=== PATIENT | female | born 1980 | race Caucasian/White ===

== ENCOUNTER → 2019-09-18 08:22 | Outpatient (BNVA) | payer MEDICARE, MEDICAID, SELFPAY | PROVIDERS: Family Provider Family Medicine; PCP Nurse Practitioner; Visit Provider Psychiatry & Neurology Psychiatry | DX: F31.60 Bipolar disorder, current episode mixed, unspecified (principal); F63.81 Intermittent explosive disorder | CPT/HCPCS: 80048; 80178 ==

== ENCOUNTER → 2019-09-25 08:19 | Outpatient (BNVA) | payer MEDICARE, MEDICAID, SELFPAY | PROVIDERS: Family Provider Family Medicine; PCP Nurse Practitioner; Visit Provider Nurse Practitioner | DX: E03.8 Other specified hypothyroidism (principal) | CPT/HCPCS: 84439; 84443; 84481; 86800 ==

== ENCOUNTER → 2019-09-26 08:08 | Outpatient (BNVA) | payer MEDICARE, MEDICAID, SELFPAY | PROVIDERS: Family Provider Family Medicine; PCP Nurse Practitioner; Visit Provider Nurse Practitioner | DX: E03.8 Other specified hypothyroidism (principal) | CPT/HCPCS: 81003 ==

== ENCOUNTER 2019-10-11 08:22 | Outpatient (CLI) | payer MEDICARE, MEDICAID, SELFPAY ==
--- NOTE | 2019-10-11 08:45 | US_ITS ---
WS: [id number] THYROID ULTRASOUND REASON FOR EXAM: enlarge thyroid TECHNIQUE: Grayscale and Doppler ultrasound examination of the thyroid gland. FINDINGS: RIGHT: Right thyroid gland measures 4.5 cm x 1.9 cm x 1.5 cm. Right thyroid volume equals 6.4 ccm3. Heteroge neous. LEFT: Left thyroid gland measures 3.6 cm x 1.5 cm x 2.1 cm. Left thyroid volume equals 6.0 ccm3. Heterogene ous. An area in the mid lobe shows increased blood flow. The heterogeneous configuration suggests Carlie's disease. Versus hypothyroidism. There is a encapsulated lesion in the midportion of the left lobe measures 4.2 x 3.0 mm. This appears to be in adenoma. Thyroid isthmus: 0.2 mm. US/US thyroid [id number] IMPRESSION: Heterogeneous configuration suggests Carlie's disease versus hypothyroidism. Small adenoma midportion left lobe.
== END 2019-10-11 08:23 | disposition home or self-care (01) ==
LOC: RAD 08:26
PROVIDERS: Family Provider Family Medicine; PCP Nurse Practitioner; Visit Provider Nurse Practitioner
DX: E04.9 Nontoxic goiter, unspecified (principal); D34 Benign neoplasm of thyroid gland
CPT/HCPCS: 76536

== ENCOUNTER → 2019-10-15 08:51 | Outpatient (BNVA) | payer MEDICARE, MEDICAID, SELFPAY | PROVIDERS: Family Provider Family Medicine; PCP Nurse Practitioner; Visit Provider Psychiatry & Neurology Psychiatry | DX: Z79.899 Other long term (current) drug therapy (principal) | CPT/HCPCS: 80178 ==

== ENCOUNTER → 2019-12-04 10:22 | Outpatient (BNVA) | payer MEDICARE, MEDICAID, SELFPAY | PROVIDERS: Family Provider Family Medicine; PCP Nurse Practitioner; Visit Provider Nurse Practitioner | DX: E03.8 Other specified hypothyroidism (principal) | CPT/HCPCS: 84443 ==

== ENCOUNTER → 2020-01-08 08:20 | Outpatient (BNVA) | payer MEDICARE, MEDICAID, SELFPAY | PROVIDERS: Family Provider Family Medicine; PCP Nurse Practitioner; Visit Provider Nurse Practitioner | DX: Z11.1 Encounter for screening for respiratory tuberculosis (principal) | CPT/HCPCS: 86580 ==

== ENCOUNTER → 2020-02-25 08:00 | Outpatient (BNVA) | payer MEDICARE, MEDICAID, SELFPAY | PROVIDERS: Family Provider Family Medicine; PCP Nurse Practitioner; Visit Provider Psychiatry & Neurology Psychiatry | DX: E03.8 Other specified hypothyroidism (principal); F84.0 Autistic disorder; F90.9 Attention-deficit hyperactivity disorder, unspecified type; Z79.899 Other long term (current) drug therapy | CPT/HCPCS: 80053; 80156; 80178; 81000; 84443; 85025 ==

== ENCOUNTER → 2020-04-30 08:19 | Outpatient (BNVA) | payer MEDICARE, MEDICAID, SELFPAY | PROVIDERS: Family Provider Family Medicine; PCP Nurse Practitioner; Visit Provider Nurse Practitioner | DX: E03.9 Hypothyroidism, unspecified (principal); E78.2 Mixed hyperlipidemia | CPT/HCPCS: 80061; 84443 ==

== ENCOUNTER → 2020-05-27 10:27 | Outpatient (BNVA) | payer MEDICARE, MEDICAID, SELFPAY | PROVIDERS: Family Provider Family Medicine; PCP Nurse Practitioner; Visit Provider Nurse Practitioner | DX: Z12.4 Encounter for screening for malignant neoplasm of cervix (principal) | CPT/HCPCS: 88175 ==

== ENCOUNTER → 2020-07-13 09:10 | Outpatient (BNVA) | payer MEDICARE, MEDICAID, SELFPAY | PROVIDERS: Family Provider Family Medicine; PCP Nurse Practitioner; Visit Provider Nurse Practitioner | DX: Z11.3 Encounter for screening for infections with a predominantly sexual mode of transmission (principal) | CPT/HCPCS: 81000; 87491; 87591 ==

== ENCOUNTER → 2020-08-27 08:28 | Outpatient (BNVA) | payer MEDICARE, MEDICAID, SELFPAY | PROVIDERS: Family Provider Family Medicine; PCP Nurse Practitioner; Visit Provider Nurse Practitioner | DX: F84.0 Autistic disorder (principal); F90.9 Attention-deficit hyperactivity disorder, unspecified type; Z51.81 Encounter for therapeutic drug level monitoring; Z79.899 Other long term (current) drug therapy; E03.8 Other specified hypothyroidism | CPT/HCPCS: 80053; 80061; 80156; 80178; 84443; 85025 ==

== ENCOUNTER → 2020-11-13 08:04 | Outpatient (BNVA) | payer MEDICARE, MEDICAID, SELFPAY | PROVIDERS: Family Provider Family Medicine; PCP Nurse Practitioner; Visit Provider Nurse Practitioner | DX: E78.2 Mixed hyperlipidemia (principal); E61.1 Iron deficiency; F31.62 Bipolar disorder, current episode mixed, moderate; F90.9 Attention-deficit hyperactivity disorder, unspecified type; F84.0 Autistic disorder; E03.8 Other specified hypothyroidism; F63.81 Intermittent explosive disorder | CPT/HCPCS: 80053; 80061; 80156; 80178; 83540; 84443; 85025 ==

== ENCOUNTER → 2020-12-01 16:02 | Outpatient (BNVA) | payer MEDICARE, MEDICAID, SELFPAY | PROVIDERS: Family Provider Family Medicine; PCP Nurse Practitioner; Visit Provider Nurse Practitioner | DX: K59.04 Chronic idiopathic constipation (principal) | CPT/HCPCS: 74018; 88304; 88305 ==

== ENCOUNTER → 2020-12-07 10:51 | Outpatient (BNVA) | payer MEDICARE, MEDICAID, SELFPAY | PROVIDERS: Family Provider Family Medicine; PCP Nurse Practitioner; Visit Provider Nurse Practitioner | DX: K59.04 Chronic idiopathic constipation (principal); E03.8 Other specified hypothyroidism | CPT/HCPCS: 74018; 80053; 80156; 80178; 84443; 85025 ==

== ENCOUNTER → 2021-01-06 07:52 | Outpatient (BNVA) | payer MEDICARE, MEDICAID, SELFPAY | PROVIDERS: Family Provider Family Medicine; PCP Nurse Practitioner; Visit Provider Family Medicine | DX: Z11.1 Encounter for screening for respiratory tuberculosis (principal) | CPT/HCPCS: 86580 ==

== ENCOUNTER → 2021-03-10 10:20 | Outpatient (BNVA) | payer MEDICARE, MEDICAID, SELFPAY | PROVIDERS: Family Provider Family Medicine; PCP Nurse Practitioner; Visit Provider Nurse Practitioner | DX: E78.2 Mixed hyperlipidemia (principal); N91.2 Amenorrhea, unspecified; E03.8 Other specified hypothyroidism; E61.1 Iron deficiency | CPT/HCPCS: 80053; 80061; 81025; 83540; 84443; 85025 ==

== ENCOUNTER → 2021-05-11 16:33 | Outpatient (BNVA) | payer MEDICARE, MEDICAID, SELFPAY | PROVIDERS: Family Provider Family Medicine; PCP Nurse Practitioner; Visit Provider Nurse Practitioner | DX: E61.1 Iron deficiency (principal) | CPT/HCPCS: 83540 ==

== ENCOUNTER → 2021-07-13 07:35 | Outpatient (BNVA) | payer MEDICARE, MEDICAID, SELFPAY | PROVIDERS: Family Provider Family Medicine; PCP Nurse Practitioner; Visit Provider Nurse Practitioner | DX: E03.8 Other specified hypothyroidism (principal); F84.0 Autistic disorder; F90.9 Attention-deficit hyperactivity disorder, unspecified type; F25.0 Schizoaffective disorder, bipolar type | CPT/HCPCS: 81000 ==

== ENCOUNTER → 2021-10-05 15:55 | Outpatient (BNVA) | payer MEDICARE, MEDICAID, SELFPAY | PROVIDERS: Family Provider Family Medicine; PCP Nurse Practitioner; Visit Provider Nurse Practitioner | DX: F25.9 Schizoaffective disorder, unspecified (principal); E03.8 Other specified hypothyroidism | CPT/HCPCS: 80053; 80156; 84443; 85025 ==

== ENCOUNTER → 2022-01-26 07:36 | Outpatient (BNVA) | payer MEDICARE, MEDICAID, SELFPAY | PROVIDERS: Family Provider Family Medicine; PCP Nurse Practitioner; Visit Provider Nurse Practitioner | DX: E03.8 Other specified hypothyroidism (principal); F31.62 Bipolar disorder, current episode mixed, moderate; F25.9 Schizoaffective disorder, unspecified | CPT/HCPCS: 80156; 84443 ==

== ENCOUNTER → 2022-04-13 07:56 | Outpatient (BNVA) | payer MEDICARE, MEDICAID, SELFPAY | PROVIDERS: Family Provider Family Medicine; PCP Nurse Practitioner; Visit Provider Nurse Practitioner | DX: K59.04 Chronic idiopathic constipation; E03.8 Other specified hypothyroidism; E61.1 Iron deficiency; F90.9 Attention-deficit hyperactivity disorder, unspecified type; K05.10 Chronic gingivitis, plaque induced; J30.89 Other allergic rhinitis; F25.0 Schizoaffective disorder, bipolar type | CPT/HCPCS: 80053; 80156; 84443; 85025 ==

== ENCOUNTER → 2022-06-15 08:07 | Outpatient (BNVA) | payer MEDICARE, MEDICAID, SELFPAY | PROVIDERS: Family Provider Family Medicine; PCP Nurse Practitioner; Visit Provider Nurse Practitioner | DX: N18.2 Chronic kidney disease, stage 2 (mild) (principal) | CPT/HCPCS: 81000 ==

== ENCOUNTER → 2022-07-06 08:22 | Outpatient (BNVA) | payer MEDICARE, MEDICAID, SELFPAY | PROVIDERS: Family Provider Family Medicine; PCP Nurse Practitioner; Visit Provider Nurse Practitioner | DX: N18.2 Chronic kidney disease, stage 2 (mild) (principal); E03.8 Other specified hypothyroidism; E61.1 Iron deficiency | CPT/HCPCS: 80053; 81000; 84443; 85025 ==

== ENCOUNTER → 2022-07-26 08:03 | Outpatient (BNVA) | payer MEDICARE, MEDICAID, SELFPAY | PROVIDERS: Family Provider Family Medicine; PCP Nurse Practitioner; Visit Provider Nurse Practitioner | DX: R73.9 Hyperglycemia, unspecified (principal) | CPT/HCPCS: 83036 ==

== ENCOUNTER 2022-08-17 13:53 | Outpatient (CLI) | payer MEDICARE, MEDICAID, SELFPAY ==
--- NOTE | 2022-08-17 14:21 | MM_ITS ---
WS: [email or web address] BILATERAL 2D . DIGITAL SCREENING MAMMOGRAPHY WITH CAD CLINICAL INFORMATION: Z12.39 - Encounter for other screening for malignant neop... HISTORY: Screening mammogram. No current complaints. COMPARISON: 2017 TECHNIQUE: Bilateral CC and MLO views. FINDINGS: The breasts are composed of heterogeneous fibroglandular density tissue, which can limit the detectio n of small underlying mass lesions. New asymmetric density LEFT breast measuring 6 mm in the upper qu adrant best seen on the MLO view. Recommend LEFT breast diagnostic mammography and ultrasound if pers istent. RIGHT breast is unremarkable. IMPRESSION: MM/[place] [id number] BI-RADS: 0-Incomplete: Need additional imaging evaluation FOLLOW UP: Need Additional Imaging Recommend spot compression views LEFT breast and ultrasound if persistent.
== END 2022-08-17 13:54 | disposition home or self-care (01) ==
LOC: RAD 13:54
PROVIDERS: Family Provider Family Medicine; PCP Nurse Practitioner; Visit Provider Nurse Practitioner
DX: Z12.31 Encounter for screening mammogram for malignant neoplasm of breast (principal)
CPT/HCPCS: 77063; 77067

== ENCOUNTER → 2022-09-08 09:51 | Outpatient (BNVA) | payer MEDICARE, MEDICAID, SELFPAY | PROVIDERS: Family Provider Family Medicine; PCP Nurse Practitioner; Visit Provider Nurse Practitioner | DX: F25.0 Schizoaffective disorder, bipolar type (principal); Z79.899 Other long term (current) drug therapy | CPT/HCPCS: 80053; 80061; 80156; 85025 ==

== ENCOUNTER 2022-09-14 14:11 | Outpatient (CLI) | payer MEDICARE, MEDICAID, SELFPAY ==
--- NOTE | 2022-09-14 15:00 | MM_ITS ---
WS: [email or web address] LEFT 2D DIGITAL DIAGNOSTIC MAMMOGRAPHY WITH CAD CLINICAL INFORMATION: R92.8 - Other abnormal and inconclusive findings on diagn... HISTORY: Additional views COMPARISON: August 17, 2022 TECHNIQUE: 3 views of the left breast were obtained. FINDINGS: Scattered fibroglandular densities of the left breast. 6 mm asymmetric density upper quadrant LEFT br east. This persists on spot compression views. Ultrasound described below. ULTRASOUND BREAST LEFT TECHNIQUE: Ultrasound left breast focused area of concern. CLINICAL INFORMATION: R92.8 - Other abnormal and inconclusive findings on diagn... FINDINGS: Ultrasound LEFT breast at the 11:00 position 2-3 cm from the nipple. There is a small hypoechoic sharee d appearing nodule at the 12:00 position 3 cm from the nipple measuring approximately 4.1 x 3.3 x 3.7 mm. This is taller than wide and indeterminant. Recommend further evaluation with ultrasound-guided biopsy. Tiny incidental cyst at the 11:00 position. MM/[place] [id number] IMPRESSION: BI-RADS: 4-Suspicious Finding-Biopsy Should Be Considered FOLLOW UP: US Guided Biopsy Recommended RECOMMEND FURTHER EVALUATION LEFT BREAST NODULE WITH ULTRASOUND-GUIDED BIOPSY.
== END 2022-09-14 14:12 | disposition home or self-care (01) ==
LOC: RAD 14:13
PROVIDERS: PCP Nurse Practitioner; Visit Provider Nurse Practitioner
DX: R92.8 Other abnormal and inconclusive findings on diagnostic imaging of breast (principal); R92.2 Inconclusive mammogram
CPT/HCPCS: 76642; 77065

== ENCOUNTER 2022-10-19 11:50 | Outpatient (CLI) | payer MEDICARE, MEDICAID, SELFPAY ==
--- NOTE | 2022-10-19 13:00 | US_ITS ---
WS: [id number] ULTRASOUND-GUIDED LEFT BREAST BIOPSY CLINICAL INFORMATION: N63.0 - Unspecified lump in unspecified breast COMPARISON: Ultrasound September 14, 2022 FINDINGS: The procedure including risks, benefits, and complications were discussed with the patient who agreed to proceed. Using sterile technique patient was prepped and draped in the usual sterile fashion. Aft er 1% lidocaine utilizing real-time ultrasound guidance 4 14-gauge cores were obtained of the LEFT br east lesion at the 12 o'clock position 2 cm from the nipple. Subsequently a titanium clip was placed in the biopsy cavity. No immediate complications. Pathology demonstrates A. Breast, left, 12 o'clock, 2 cm from nipple, biopsy: - Benign breast with fibro-adenomatoid changes. - Single focus of adenosis. - No malignancy identified. US/[place] [id number] IMPRESSION: 1. Uncomplicated ultrasound-guided LEFT breast biopsy. 2. The pathology demonstrates fibroadenomatoid changes. No malignancy identifi ed. 3. Recommend 6 month follow-up LEFT breast ultrasound to ensure stability post biopsy. BI-RADS: 3-Probably Benign FOLLOW UP: 6 Month Follow-up
== END 2022-10-19 11:51 | disposition home or self-care (01) ==
LOC: RAD 11:55
PROVIDERS: PCP Nurse Practitioner; Visit Provider Nurse Practitioner
DX: N63.25 Unspecified lump in the left breast, overlapping quadrants (principal)
CPT/HCPCS: 19083; 88305

== ENCOUNTER → 2023-03-15 07:40 | Outpatient (BNVA) | payer MEDICARE, MEDICAID, SELFPAY | PROVIDERS: PCP Nurse Practitioner; Visit Provider Nurse Practitioner | DX: E03.8 Other specified hypothyroidism (principal); E78.2 Mixed hyperlipidemia; F84.0 Autistic disorder | CPT/HCPCS: 80053; 80061; 80156; 84443; 85025 ==

== ENCOUNTER 2023-04-26 12:40 | Outpatient (CLI) | payer MEDICARE, MEDICAID, SELFPAY ==
--- NOTE | 2023-04-26 13:15 | US_ITS ---
WS: [id number] ULTRASOUND BREAST LEFT TECHNIQUE: Ultrasound left breast focused area of concern. CLINICAL INFORMATION: D24.2 - Benign neoplasm of left breast. Fibroadenoma. 6-month follow-up. COMPARISON: Ultrasound 10/19/2022 FINDINGS: Ultrasound LEFT breast at the 12 o'clock position 2 cm from the nipple. Stable small hypoechoic lesio n previously biopsied with associated biopsy clip. This measures 5.2 x 4.5 x 2.7 cm stable compared t o previous. Recommend 6-month follow-up LEFT breast diagnostic mammography and ultrasound at the time of annual s creen mammography in order to ensure 1 year stability. IMPRESSION: BI-RADS 3 probably benign Recommend 6-month follow-up LEFT breast diagnostic mammography and ultrasound to ensure stability.
== END 2023-04-26 12:41 | disposition home or self-care (01) ==
PROVIDERS: PCP Nurse Practitioner; Visit Provider Nurse Practitioner
DX: D24.2 Benign neoplasm of left breast (principal); R92.8 Other abnormal and inconclusive findings on diagnostic imaging of breast
CPT/HCPCS: 76642

== ENCOUNTER → 2023-06-27 07:54 | Outpatient (BNVA) | payer MEDICARE, MEDICAID, SELFPAY | PROVIDERS: PCP Nurse Practitioner; Visit Provider Nurse Practitioner | DX: N18.2 Chronic kidney disease, stage 2 (mild) (principal) | CPT/HCPCS: 81000 ==

== ENCOUNTER → 2023-08-29 08:27 | Outpatient (BNVA) | payer MEDICARE, MEDICAID, SELFPAY | PROVIDERS: PCP Nurse Practitioner; Visit Provider Nurse Practitioner | DX: E03.8 Other specified hypothyroidism (principal) | CPT/HCPCS: 80053; 81000; 84443 ==

== ENCOUNTER → 2023-10-31 08:13 | Outpatient (BNVA) | payer MEDICARE, MEDICAID, SELFPAY | PROVIDERS: PCP Nurse Practitioner; Visit Provider Nurse Practitioner | DX: Z12.4 Encounter for screening for malignant neoplasm of cervix (principal) | CPT/HCPCS: 88175 ==

== ENCOUNTER 2023-11-23 14:37 | Outpatient (CLI) | payer MEDICARE, MEDICAID, SELFPAY ==
--- NOTE | 2023-11-23 14:41 | US_ITS ---
WS: [email or web address] BILATERAL 2D DIGITAL DIAGNOSTIC MAMMOGRAPHY WITH CAD CLINICAL INFORMATION: R92.8 - Other abnormal and inconclusive findings on diagn... HISTORY: 6-month follow-up COMPARISON: 08/17/2022 TECHNIQUE: Bilateral CC, MLO, and ML views. FINDINGS: The breasts are composed of heterogeneous fibroglandular density, which can limit the detection of sm all underlying mass lesions. Biopsy clip LEFT breast. Stable adjacent 6 mm ovoid density upper outer quadrant LEFT breast previously biopsied. No suspicious focal mass, asymmetry, calcifications, or architectural distortion. No new findings. ULTRASOUND BREAST LEFT TECHNIQUE: Ultrasound left breast focused area of concern. CLINICAL INFORMATION: R92.8 - Other abnormal and inconclusive findings on diagn... FINDINGS: Ultrasound LEFT breast the 12 o'clock position 2 cm from the nipple. Stable small hypoechoic previous ly biopsied lesion with associated biopsy clip. This is stable compared to the prior studies. Recomme nd return to annual screening mammography. Previous biopsy of this nodule demonstrated benign breast tissue with fibroadenomatoid changes. No ma lignancy identified. IMPRESSION: US/US breast LT limited* [id number] BI-RADS: 2-Benign FOLLOW UP: 1 Year Follow-up Recommend return to annual screening mammography.
--- NOTE | 2023-11-23 15:00 | MM_ITS ---
WS: [email or web address] BILATERAL 2D DIGITAL DIAGNOSTIC MAMMOGRAPHY WITH CAD CLINICAL INFORMATION: R92.8 - Other abnormal and inconclusive findings on diagn... HISTORY: 6-month follow-up COMPARISON: 08/17/2022 TECHNIQUE: Bilateral CC, MLO, and ML views. FINDINGS: The breasts are composed of heterogeneous fibroglandular density, which can limit the detection of sm all underlying mass lesions. Biopsy clip LEFT breast. Stable adjacent 6 mm ovoid density upper outer quadrant LEFT breast previously biopsied. No suspicious focal mass, asymmetry, calcifications, or architectural distortion. No new findings. ULTRASOUND BREAST LEFT TECHNIQUE: Ultrasound left breast focused area of concern. CLINICAL INFORMATION: R92.8 - Other abnormal and inconclusive findings on diagn... FINDINGS: Ultrasound LEFT breast the 12 o'clock position 2 cm from the nipple. Stable small hypoechoic previous ly biopsied lesion with associated biopsy clip. This is stable compared to the prior studies. Recomme nd return to annual screening mammography. Previous biopsy of this nodule demonstrated benign breast tissue with fibroadenomatoid changes. No ma lignancy identified. IMPRESSION: MM/[place] [id number] BI-RADS: 2-Benign FOLLOW UP: 1 Year Follow-up Recommend return to annual screening mammography.
== END 2023-11-23 14:38 | disposition home or self-care (01) ==
LOC: RAD 14:37
PROVIDERS: PCP Nurse Practitioner; Visit Provider Nurse Practitioner
DX: R92.8 Other abnormal and inconclusive findings on diagnostic imaging of breast (principal)
CPT/HCPCS: 76642; 77066

== ENCOUNTER → 2024-01-08 07:57 | Outpatient (BNVA) | payer MEDICARE, MEDICAID, SELFPAY | PROVIDERS: PCP Nurse Practitioner; Visit Provider Psychiatry & Neurology Psychiatry | DX: E78.2 Mixed hyperlipidemia (principal); E03.8 Other specified hypothyroidism; Z51.81 Encounter for therapeutic drug level monitoring | CPT/HCPCS: 80053; 80061; 80156; 84443; 85025 ==

== ENCOUNTER → 2024-03-12 09:37 | Outpatient (BNVA) | payer MEDICARE, MEDICAID, SELFPAY | PROVIDERS: PCP Nurse Practitioner; Visit Provider Nurse Practitioner | DX: N18.2 Chronic kidney disease, stage 2 (mild) (principal) | CPT/HCPCS: 81000 ==

== ENCOUNTER → 2024-07-09 07:55 | Outpatient (BNVA) | payer MEDICARE, MEDICAID, SELFPAY | PROVIDERS: PCP Nurse Practitioner; Visit Provider Nurse Practitioner | DX: F25.0 Schizoaffective disorder, bipolar type (principal); E03.8 Other specified hypothyroidism; E78.2 Mixed hyperlipidemia; E61.1 Iron deficiency | CPT/HCPCS: 80053; 80061; 80156; 83540; 84443 ==

== ENCOUNTER → 2024-09-10 07:44 | Outpatient (BNVA) | payer MEDICARE, MEDICAID, SELFPAY | PROVIDERS: PCP Nurse Practitioner; Visit Provider Nurse Practitioner | DX: F25.0 Schizoaffective disorder, bipolar type (principal) | CPT/HCPCS: 80156 ==

== ENCOUNTER → 2025-01-10 12:12 | Outpatient (BNVA) | payer MEDICARE, MEDICAID, SELFPAY | PROVIDERS: PCP Nurse Practitioner; Visit Provider Emergency Medicine | DX: S59.902A Unspecified injury of left elbow, initial encounter (principal); X58.XXXA Exposure to other specified factors, initial encounter | CPT/HCPCS: 73080 ==

== ENCOUNTER → 2025-02-04 08:25 | Outpatient (BNVA) | payer MEDICARE, MEDICAID, SELFPAY | PROVIDERS: PCP Nurse Practitioner; Visit Provider Nurse Practitioner | DX: E78.2 Mixed hyperlipidemia (principal); E03.8 Other specified hypothyroidism; N18.2 Chronic kidney disease, stage 2 (mild) | CPT/HCPCS: 80053; 81000; 84146; 84443; 85025 ==

== ENCOUNTER 2025-02-11 08:59 | Outpatient (CLI) | payer MEDICARE, MEDICAID, SELFPAY ==
--- NOTE | 2025-02-11 09:30 | MR_ITS ---
WS: [email or web address] MRI HEAD WITHOUT CONTRAST TECHNIQUE: Sagittal T1, T2 axial, T2 axial FLAIR, axial and coronal T1 images, axial susceptibility weighted imaging, axial diffusion weighted images, and coronal T2 images were obtained. CLINICAL INFORMATION: R79.89 - Other specified abnormal findings of blood chemi... COMPARISON: None. FINDINGS: Some images degraded by motion. No evidence of restricted diffusion to suggest acute ischemia. Ventricular system and basal cisterns are patent. No suspicious intracranial signal abnormalities. Normal posterior fossa. Normal vascular flow voids at the skull base. No extra-axial fluid collections. Retention cyst or polyp RIGHT maxillary sinus measuring 1.8 cm. No hemosiderin on the susceptibility weighted images. Normal optic chiasm and pituitary infundibulum. Normal cavernous sinuses. No evidence of suprasellar mass. No visualized intrasellar lesion on this noncontrast study. Mild congenital lissencephaly. MR/MR head wo con* [id number] IMPRESSION: 1. No evidence of restricted diffusion to suggest acute ischemia. 2. No suspicious intracranial signal abnormalities. 3. Normal optic chiasm and pituitary infundibulum. 4. No evidence of suprasellar mass. No visualized intrasellar lesion on this n oncontrast study. Note this study does not exclude a pituitary microadenoma if clinically questio jonas. If indicated, MRI of the pituitary without and with gadolinium enhancement with dynamic pituitary protocol would need to be performed to evaluate for vladimir roadenoma if patient is a candidate.
== END 2025-02-11 09:00 | disposition home or self-care (01) ==
LOC: RAD 09:06
PROVIDERS: PCP Nurse Practitioner; Visit Provider Nurse Practitioner
DX: R79.89 Other specified abnormal findings of blood chemistry (principal)
CPT/HCPCS: 70551

== ENCOUNTER 2025-04-10 11:35 | Outpatient (CLI) | payer MEDICARE, MEDICAID, SELFPAY ==
--- NOTE | 2025-04-10 11:42 | MR_ITS ---
WS: [email or web address] MRI HEAD WITHOUT AND WITH GADOLINIUM ENHANCEMENT WITH PITUITARY PROTOCOL. TECHNIQUE: Sagittal T1, T2 axial, T2 axial FLAIR, axial susceptibility weighted imaging, axial diffusion weighted images, and coronal T2 images were obtained. Pre and post-T1 axial and post T1 coronal images. ADC and FSPGR images. Pituitary protocol performed CLINICAL INFORMATION: R79.89 - Other specified abnormal findings of blood chemi... COMPARISON: MRI 02/11/2025 FINDINGS: Normal optic chiasm and pituitary infundibulum. Dynamic pituitary protocol performed. Normal homogeneous enhancing pituitary tissue. No evidence of microadenoma. No evidence of intrasellar or suprasellar lesion. Normal optic chiasm. Normal cavernous sinuses and Meckel's cave. No abnormal gadolinium enh ancement. Normal dural venous sinuses. No evidence of restricted diffusion to suggest acute ischemia. Ventricular system and basal cisterns are patent. No suspicious intracranial signal abnormalities. No extra-axial fluid collections. Retention cyst or polyp RIGHT maxillary sinus measuring 1.8 cm. No hemosiderin on the susceptibility weighted images. Mild congenital lissencephaly. MR/MR pituitary wo/w con* [id number] IMPRESSION: 1. No evidence of microadenoma on the dynamic pituitary images. 2. No evidence of intrasellar or suprasellar mass. 3. Normal pituitary tissue enhancement. 4. No other suspicious findings
[2025-04-10] MEDS: gadobenate dimeglumine 20 mL vial 16 ML IV (12:41)
== END 2025-04-10 11:36 | disposition home or self-care (01) ==
LOC: RAD 11:37
PROVIDERS: PCP Nurse Practitioner; Visit Provider Nurse Practitioner
DX: R79.89 Other specified abnormal findings of blood chemistry (principal); J34.1 Cyst and mucocele of nose and nasal sinus
CPT/HCPCS: 70553; A9577

== ENCOUNTER 2025-05-06 14:48 | Outpatient (CLI) | payer MEDICARE, MEDICAID, SELFPAY ==
--- NOTE | 2025-05-06 14:52 | MM_ITS ---
WS: [email or web address] BILATERAL 3D TOMOSYNTHESIS DIGITAL SCREENING MAMMOGRAPHY WITH CAD CLINICAL INFORMATION: Z12.31 - Encounter for screening mammogram for malignant ... HISTORY: Screening mammogram. No current complaints. COMPARISON: 2023 TECHNIQUE: Bilateral CC and MLO views. FINDINGS: The breasts are composed of heterogeneous fibroglandular density tissue, which can limit the detection of small underlying mass lesions. No suspicious mass, asymmetry, calcifications, or architectural distortion. No evidence of malignancy. LEFT breast biopsy clip. A few incidental punctate calcifications. MM/MM [facility] tomosynthesis [id number] IMPRESSION: DENSITY: The breasts are heterogeneously dense, which may obscure small masses. BI-RADS: 2 - Benign FOLLOW UP: 1 Year Follow-up Recommend return to annual screening mammography.
== END 2025-05-06 14:49 | disposition home or self-care (01) ==
LOC: RAD 14:52
PROVIDERS: PCP Nurse Practitioner; Visit Provider Nurse Practitioner
DX: Z12.31 Encounter for screening mammogram for malignant neoplasm of breast (principal); R92.323 Mammographic fibroglandular density, bilateral breasts; R92.333 Mammographic heterogeneous density, bilateral breasts; Z96.89 Presence of other specified functional implants; R92.1 Mammographic calcification found on diagnostic imaging of breast
CPT/HCPCS: 77063; 77067